=== PATIENT | male | born 1945 | race Asian ===

== ENCOUNTER 2019-05-12 11:56 | Inpatient (IN) | payer OTHER, MEDICAID ==
[~2019-05-12] VITALS: Ht 165.1 cm; Wt 64.9 kg
[2019-05-12 11:59] VITALS: Ht 165.1 cm; Wt 64.9 kg
--- NOTE | 2019-05-12 12:11 | NUR ---
ED PHYSICIAN AT BEDSIDE FOR PATIENT EVALUATION. MEDICAL SCREENING EXAMINATION COMPLETED BY ED PHYSICIAN DR. ORTEZ
[2019-05-12 12:37] LABS: BASOPHIL % 0.1 % (0-2); PLATELET COUNT 330 x10^3mcL (130-400)
[2019-05-12 12:43] LABS: CALCIUM 8.8 mg/dL (8.5-10.1); CARBON DIOXIDE 33.3 mmol/L (21-32); CHLORIDE SERUM 106 mmol/L (98-107); CREATININE SERUM 2.4 mg/dL (0.7-1.3); GLUCOSE SERUM 113 mg/dL (74-106); POTASSIUM SERUM 4.4 mmol/L (3.5-5.1); RED CELL DISTRIBUTION WIDTH 16.5 % (11.5-14.5); SODIUM SERUM 142 mmol/L (136-145)
[2019-05-12 12:56] LABS: ALBUMIN 2.2 g/dL (3.4-5.0); ALKALINE PHOSPHATASE 121 U/L (46-116); ALT/SGPT 61 U/L (16-63); AST/SGOT 33 U/L (15-37); T4(THYROXINE) 5.6 ug/dL (4.7-13.3); TOTAL PROTEIN, SERUM 6.1 g/dL (6.4-8.2)
--- NOTE | 2019-05-12 14:06 | NUR ---
AT BEDSIDE SPEAKING WITH FAMILY MEMBER
--- NOTE | 2019-05-12 14:29 | NUR ---
PT DIAPER CHANGED AND CLEANED. STRAIGHT CATH PERFORMED, PT TOLERATED WELL.
--- NOTE | 2019-05-12 14:59 | NUR ---
PT NOTED THRASHIN IN BED. LIGHT TURNED OFF. PT IN DIRECT VIEW OF NURSES STATION. RESPS E/U, SKIN IS PINK, WARM AND DRY. FAMILY AT BEDSIDE.
[2019-05-12 15:31] LABS: AMPHETAMINE QUAL UR NONE DETECTED (See below)
--- NOTE | 2019-05-12 15:32 | NUR ---
PT TRANSFERED TO CT AND BACK TO ROOM. PT COOPERATIVE AT THE MOMENT. PT MORE ALERT, PT MADE VERBAL AGREEMENT TO STAY CALM AND NON-VIOLENT. SON AND AUNT AT BEDSIDE. REMOVED 4 POINT RESTRAINTS. PT IN DIRECT VIEW OF NURSES STATION.
--- NOTE | 2019-05-12 17:20 | NUR ---
PROVIDED DR. ROJAS WITH BRIEF INFO, FOR HE WILL BE INITIATING TELE PYSCH EVALUATION.
--- NOTE | 2019-05-12 18:16 | NUR ---
RECOMMENDS ADMISSION TO IN-PATIENT PSYCHIETRY.
--- NOTE | 2019-05-12 19:15 | NUR ---
REPORT RECEIVED FROM WINSOME ENCINAS TO ASSUME CARE OF PT. PT IS ALERT AND INTRODUCED SELF. PT IS EATING QUIETLY AT BEDTIME. PT APPEARS FIDGETY. GAVE COMFORT MEASURES AND REPOSTIONED. WILL CONTINUE TO MONITOR
--- NOTE | 2019-05-12 20:37 | NUR ---
SON EXPRESSED HE WAS LEAVING AND IF PLACEMENT WAS MADE TO CALL AND NOTIFY. PT EDUCATED ABOUT SON LEAVING AND BECAME UPSET AND VERBALIZED HE WAS STILL HERE. MEDICATION WAS GIVEN PER ORDER. WILL CONTINUE TO REORIENT AND DESCALATE PT.
--- NOTE | 2019-05-12 22:07 | NUR ---
CALLED DOWN TO PHARMACY FOR MEDICATION. WILL AWAIT ARRIVAL
--- NOTE | 2019-05-12 22:12 | NUR ---
EMT CALLED TO BEDSIDE FOR PT AGITATION WITH PULLING AT LINES AND CLIMBING OUT OF BED. PT PLACED BACK IN BED REORIENTED AND DEESCALTED SITUATION. PT WAS REDIRECTABLE AT TIME ALTHOUGH APPEARS CONFUSED AND CONTINUES TO YELL OTHERS NAMES WHO ARE NOT PRESENT. WILL CONTINUE TO MONITOR
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
--- NOTE | 2019-05-12 22:46 | NUR ---
PT PLACED IN BILATERAL UPPER/LOWER SOFT RESTRAINTS. PT WAS PLACED IN APPROPRAITE CLOTHING. POSITIONED FOR COMFORT. GIVEN WATER AND ENVIORNMENTAL STIMULI WAS DECREASED. WILL CONTINUE TO MONITOR.
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
--- NOTE | 2019-05-13 02:54 | NUR ---
PT HAS BILATERAL LEGS REMOVED. ARMS WERE MOVED FOR ROM. PT HAS PEROIDS OF RESTLESSNESS AND CONFUSION WITH CONTINUED PEROIDS OF PULLING AT LINES. OFFERED FLUDIS AND TOILETRY AND REPOSITIONED FOR COMFORT. WILL CONTINUE TO MONITOR
--- NOTE | 2019-05-13 03:57 | NUR ---
EDUCATED DR DUPREE OF CONTINUED ELEVEATED HR RATE AND RESPIRATIONS. NO NEW ORDERS AT THIS TIME
--- NOTE | 2019-05-13 04:14 | NUR ---
MOUTH CLEANED OFFERED WATER AND TOILETRYS. PT REPOSTIONED FOR COMFORT. PT CONTINUES TO TALK TO SELF
--- NOTE | 2019-05-13 05:07 | NUR ---
PT CLEANED TURNED, JAIRO CARE GIVEN. GIVEN NEW SHEETS, GOWN AND WARM BLANKET. PT IS DISORIENTED AND STILL APPEARS TO BE HALUCINATING. LAB AT BEDSIDE FOR BLOOD DRAW. NO S/S OF DISTRESS.
[2019-05-13 05:23] LABS: PLATELET COUNT 360 x10^3mcL (130-400)
--- NOTE | 2019-05-13 05:23 | NUR ---
PT APPEARS RESTLESS BUT DURING CONVERSTAION WAS ALERT AND ABLE TO ANSWER QUESTIONS APPROPRIATLY. PT WAS FOLLOWING BASIC COMMANDS AND WRIST RESTRAINTS REMOVED. PT GIVEN WARM BLANKET AND EDUCATED ABOUT SAFTEY PRECAUTIONS. WILL CONTINUE TO MONITOR
[2019-05-13 05:24] LABS: BASOPHIL % 2.8 % (0-2)
[2019-05-13 05:38] LABS: ALKALINE PHOSPHATASE 116 U/L (46-116); ALT/SGPT 48 U/L (16-63); AST/SGOT 33 U/L (15-37); BILIRUBIN TOTAL 0.67 mg/dL (0.20-1.00); CALCIUM 9.1 mg/dL (8.5-10.1); CARBON DIOXIDE 28.8 mmol/L (21-32); CHLORIDE SERUM 108 mmol/L (98-107); CREATININE SERUM 2.2 mg/dL (0.7-1.3); GLUCOSE SERUM 123 mg/dL (74-106); MAGNESIUM 2.6 mg/dL (1.8-2.4); PHOSPHOROUS 2.6 mg/dL (2.5-4.9); POTASSIUM SERUM 4.5 mmol/L (3.5-5.1); SODIUM SERUM 143 mmol/L (136-145); TOTAL PROTEIN, SERUM 6.2 g/dL (6.4-8.2)
[2019-05-13 05:46] LABS: ALBUMIN 2.2 g/dL (3.4-5.0)
[2019-05-13] MEDS ORDERED: LIPITOR80 MG PO (06:31)
[2019-05-13] MEDS ORDERED: LAMOTRIGINE25 MG PO (06:31)
[2019-05-13] MEDS ORDERED: ALLOPURINOL100 MG (06:31)
[2019-05-13] MEDS ORDERED: CARVEDILOL25 M1 PO (06:31)
[2019-05-13] MEDS ORDERED: SEROQUEL25 MG PO (06:32)
[2019-05-13] MEDS ORDERED: ELIQUIS2.5 MG (06:32)
[2019-05-13] MEDS ORDERED: LASIX20 MG (06:32)
--- NOTE | 2019-05-13 06:55 | NUR ---
SPOKE WITH PTS . PT VERBALZIXED BEING VERY GREATFUL FOR THE HELP. REQUESTING TO CHECMICALLY RESTRAIN PT INSTEADY OF PHYSICALLY. EDUCATED SHE WOULD NEED TO SPEAK WITH ADMITING MD ABOUT REQUEST
--- NOTE | 2019-05-13 07:14 | NUR ---
RECEIVED REPORT FROM CHAIRMAN EMERITUS LUCHO ENCINAS
--- NOTE | 2019-05-13 07:36 | NUR ---
REPORT GIVEN TO MINDA CLAYTON RN
--- NOTE | 2019-05-13 08:34 | NUR ---
Following facilities have been contacted regarding pt. [facility]: [facility], packet on file for review, states pending D/Cs [facility]: [facility], states pending D/Cs, packet on file for review [facility]: packet on file for review for potential openings.
--- NOTE | 2019-05-13 09:00 | NUR ---
RECEIVED PATIENT RESTING IN BED. PATIENT IS A/O X1 (PERSON). PATIENT ARRIVED VIA GURNEY, NURSE AT BEDSIDE. PATIENT DENIES PAIN. TELE MONITOR #16, AFIB WITH BBB, FAMILY STATES PATIENT HAS HX OF AFIB. DR. APARICIO AWARE. NO EDEMA NOTED, PULSES PALPABLE X4. FINE CRACKLES NOTED TO THE LUNG BASES. BOWEL SOUNDS NORMOACTIVE X4. PATIENT IS INCONTINENT. PATIENT USES WALKER WHEN AMBULATING AT BASELINE. SCAB NOTED TO RIGHT FOREARM. PATIENT DENEIS ANY SUICIDAL IDEATION. CALL LIGHT WITHIN REACH, BED IN LOW POSITION. WILL CONTINUE TO MONITOR FOR CHANGES.
[2019-05-13 10:32] VITALS: BP 91/67
--- NOTE | 2019-05-13 10:38 | NUR ---
Packet faxed to Aleena at [facility] for review.
--- NOTE | 2019-05-13 10:43 | NUR ---
Called [facility]. They are not contracted with patient's insurance.
--- NOTE | 2019-05-13 11:00 | NUR ---
PATIENT REFUSED TO COLLECT SAMPLE FOR MRSA NARES. CHARGE NURSE AWARE.
--- NOTE | 2019-05-13 11:01 | NUR ---
Packet faxed to [facility] for review.
--- NOTE | 2019-05-13 11:06 | NUR ---
Called [facility]. No female beds at this time.
--- NOTE | 2019-05-13 11:09 | NUR ---
Called [facility]. They cannot safely manage patients with a Hx of Dementia.
--- NOTE | 2019-05-13 11:16 | NUR ---
Packet faxed to [facility] for review.
--- NOTE | 2019-05-13 12:15 | NUR ---
DR APARICIO REQUESTED FOR SWALLOW EVALUATION TO RULE OUT DYSPHAGIA. WILL CARRY OUT TORB.
[2019-05-13 14:10] VITALS: BP 146/85
--- NOTE | 2019-05-13 15:25 | NUR ---
PATIENT APPEARS AGITATED AND RESTLESS, PAGED DR. APARICIO AT THIS TIME.
--- NOTE | 2019-05-13 16:23 | NUR ---
PT WAS SEEN FOR DYSPHAGIA. PT HAD MILD COUGH FOR THIN LIQUID AND NECTAR THICK LIQUID. PT WAS ABLE TO SAFELTY SWALLOW PUREE DIET WITH HONEY THICK LIQUID. RECOMMENDATION PUREE DIET WITH HONEY THICK LIQUID SMALL BITES AND SIPS ONLY UPRIGHT POSITION.
--- NOTE | 2019-05-13 16:53 | NUR ---
PATIENT WAS RESTLESS AND AGITATED, MEDICATED PATIENT WITH ATIVAN .5MG IVP PER PROTOCOL (SEE EMAR). WILL CONTINUE TO MONITOR PATIENT.
[2019-05-13 18:00] VITALS: BP 145/75
--- NOTE | 2019-05-13 18:30 | NUR ---
PATIENT PULSE OX WAS 91%, ATTEMPTED TO PLACE PATIENT ON OXYGEN, PATIENT REFUSED AND BECAME IRRITATED. SUCTION PATIENT NEEDED AND ELEVATED HOB. WILL CONTINUE TO MONITOR. NO ACUTE DISTRESS NOTED. PATIENT ON ROOM AIR, DENIES PAIN. TELE MONITOR IN PLACE. NS IV INFUSING TO DELFINA AT 100ML/HR, IV SITE CDI & PATENT, NO S/S OF INFILTRATION. SITTER AT BEDSIDE FOR SAFETY. CALL LIGHT WITHIN REACH, BED IN LOW POSITION. WILL ENDORSE REPORT TO NIGHT RN.
--- NOTE | 2019-05-13 19:30 | NUR ---
ALERT AND AWAKE. ABLE TO ANSWER SIMPLE QUESTIONS AND FOLLOW SIMPLE COMMANDS. PT ON TELE 16, AFIB WITH BBB. NO SIGN OF DISTRESS NOTED. PULSES ARE PRESENT. NO EDEMA NOTED. CONGESTED LUNG SOUNDS ON BUL NOTED. PT HAS A COUGHT WITH SCANT CLEAR SPUTUM. PT ON RA, NO SIGN OF RESP DISTRESS. BOWEL SOUNDS PRESENT x4. INCONTINENT. SMALL, DRIED OVER SCAB NOTED ON RFA. INTACT AND CLEAN. JOSE MANUEL. IV ON DELFINA INTACT AND PATENT. NO SIGN OF IRITATION OR INFILTRATION. PT IS ON A 5150 HOLD. BED IS AT LOWEST SETTING. CALL LIGHT WITHIN REACH. SITTER AT BEDSIDE. BED ALARM ON FOR SAFETY. WILL CONTINUE TO MONITOR.
[2019-05-13 21:21] VITALS: BP 145/85
--- NOTE | 2019-05-13 23:13 | NUR ---
PT IS VERY RESTLESS. IV ATIVAN GIVEN PER EMAR. WILL CONTINUE TO MONITOR.
--- NOTE | 2019-05-14 01:38 | NUR ---
PT IS RESTING IN BED WITH BOTH EYES CLOSED. BREATHING EVEN AND UNLABORED. NO SIGN DISTRESS NOTED. BED AT LOWEST SETTING. CALL LIGHT WITHIN REACH. SITTER AT BEDSIDE. WILL CONTINUE TO MONITOR.
[2019-05-14 05:52] VITALS: BP 117/82
--- NOTE | 2019-05-14 06:02 | NUR ---
Pt, at this time still awaitng for medical clearance.
[2019-05-14 06:22] LABS: PLATELET COUNT 379 x10^3mcL (130-400)
--- NOTE | 2019-05-14 06:44 | NUR ---
PT IS RESTING IN BED WITH BOTH EYES CLOSED. PT SILL AGITATED AT TIMES. MOVING CONSTANLY IN BED AND FIDGETING. SITTER AT BEDSIDE. BED IS AT LOWEST SETTING. CALL LIGHT WITHIN REACH. WILL ENDORSE TO AM [place].
[2019-05-14 06:45] LABS: CALCIUM 8.9 mg/dL (8.5-10.1); CARBON DIOXIDE 22.3 mmol/L (21-32); CHLORIDE SERUM 116 mmol/L (98-107); CREATININE SERUM 2.4 mg/dL (0.7-1.3); GLUCOSE SERUM 154 mg/dL (74-106); SODIUM SERUM 150 mmol/L (136-145)
[2019-05-14 06:48] LABS: BASOPHIL % 0 % (0-2); RED CELL DISTRIBUTION WIDTH 16.6 % (11.5-14.5)
--- NOTE | 2019-05-14 07:30 | NUR ---
RECEIVED PATIENT IN BED WITH 1-1 SITTER AT BEDSIDE. PATIENT APPEARS TO BE RESTING WELL. IVF INFUSING WELL TO DELFINA. SITE PATENT. TELE 16 A-FIB WITH BBB. PATIENT AROUSES TO NAME, OPENS EYES AND THEN DROPS BACK OFF TO SLEEP. RESP EVEN AND UNLABORED, LUNGS NOTED TO BE CONGESTED. O2 ON AT 2L VIA N/C. UNABLE TO TAKE BREAKFAST TRAY OR AM MEDS D/T LETHARGY AT THIS TIME. WILL CONTINUE TO MONTIOR.
[2019-05-14 07:43] LABS: POTASSIUM SERUM 6.2 mmol/L (3.5-5.1)
[2019-05-14 07:54] VITALS: BP 135/57
--- NOTE | 2019-05-14 11:38 | NUR ---
DR APARICIO NOTIFIED THAT PATIENT IS UNBLE TO TAKE ANY PO MEDS D/T BEING LETHARGIC, AND NOT SWALLOWING WHEN ATTEMPTS WERE MADE TO GIVE SMALL AMOUNT OF APPLE SAUCE. NEW ORDERED OBTAINED TO INSERT NGT AND USE TO GIVE MEDS. WILL NOTIFY PATIENT'S OF NEW ORDER.
--- NOTE | 2019-05-14 11:44 | NUR ---
PATIENT'S NOTIFIED OF NEW ORDER TO PLACE NGT FOR MEDS, AND PER THAT IS OK WITH HER.
[2019-05-14 13:55] VITALS: BP 93/47
--- NOTE | 2019-05-14 14:28 | NUR ---
NGT PLACED IN LEFT NARE ORDERED. KUB ORDERED FOR PLACEMENT. 1-1 SITTER AT BEDSIDE.
--- NOTE | 2019-05-14 15:50 | NUR ---
PATIENT UNCOOPERATIVE WITH CARE, PULLING AT LINES. KUB DONE AND NGT PLACEMENT CONFIRMED. DR APARICIO NOTIFIED AND NEW ORDER FOR WRIST RESTRAINTS RECEIVED. WILL CONTINUE TO [facility].
--- NOTE | 2019-05-14 17:39 | NUR ---
PATIENT REMAINS IN BED WITH BILAT SOFT WRIST RESTRAINTS IN PLACE. 1-1 SITTER ALSO AT BEDSIDE. KAYEXALATE GIVEN ORDERED VIA NGT FOR K+ LEVEL OF 6.[address] ORDER. PATIENT REMAINS CONFUSED, MOVES AROUND IN BED FREQUENTLY. WILL CONTINUE TO MONITOR. PATIENT'S WAS NOTIFIED EARLIER ABOUT RESTRAINT ORDER FOR PATIENT AND SHE WAS IN AGREEMENT.
[2019-05-14 18:13] VITALS: BP 135/79
--- NOTE | 2019-05-14 18:52 | NUR ---
I HAVE REVIEWED THE DATA COLLECTION BY DIESEL SCOOP OPERATOR (NAME): ENTERED ON (DATE/TIME): I CONCUR WITH THE DATA AND ANY EXCEPTIONS OR COMMENTS ARE LISTED BELOW: PATIENT'S PLAN OF CARE WAS DISCUSSED AND REVIEWED WITH DIESEL SCOOP OPERATOR:VIN TOUSSAINT
--- NOTE | 2019-05-14 18:53 | NUR ---
FAMILY MEMBERS AT BEDSIDE. PATIENT REMAINS WITH GAVIN SOFT WRIST RESTRAINTS IN PLACE. 1-1 SITTER AT BEDSIDE. PATIENT MOVES ABOUT FREQUENTLY IN BED. REMAINS CONGESTED AND WITH O2 ON AT 2L VIA N/C. NGT CLAMPPED AT THIS TIME.
--- NOTE | 2019-05-14 19:10 | NUR ---
RECEIVED PT FROM PREVIOUS SHIFT NURSE. PT AOX1. UNABLE TO FOLLOW COMMANDS. OCCACIONS GRUNTS. TELE #17, AFIB WITH BBB, HR 120. NO SOB/DIFFICULTY BREATHING NOTED, ON 2L NC. NG TUBE TO L. NARE. IV TO DELFINA, INTACT AND PATENT. B/L SOFT WRIST RESTRAINTS IN PLACE, NO REDNESS/SWELLING NOTED TO WRISTS. FAMILY AT BEDSIDE. BED IN LOWEST POSITION. CALL LIGHT WITHIN REACH. WILL CONTINUE TO MONITOR.
[2019-05-14 19:19] VITALS: BP 114/54
--- NOTE | 2019-05-14 23:35 | NUR ---
Pt still not medically cleared ,per GEORGINA ENCINASextension service specialist in charge floor nurse.
--- NOTE | 2019-05-15 04:42 | NUR ---
PT RESTING IN BED. RR EVEN AND UNLABORED. IN NO ACUTE DISTRESS. CALL LIGHT WITHIN REACH. BED IN LOWEST POSITION. WILL CONTINUE TO MONITOR.
[2019-05-15 05:41] VITALS: BP 148/69
[2019-05-15 06:56] LABS: BASOPHIL % 0.1 % (0-2); PLATELET COUNT 322 x10^3mcL (130-400)
[2019-05-15 07:06] LABS: CALCIUM 8.2 mg/dL (8.5-10.1); CARBON DIOXIDE 27.4 mmol/L (21-32); CHLORIDE SERUM 117 mmol/L (98-107); CREATININE SERUM 2.8 mg/dL (0.7-1.3); GLUCOSE SERUM 155 mg/dL (74-106); POTASSIUM SERUM 5.3 mmol/L (3.5-5.1); SODIUM SERUM 153 mmol/L (136-145)
--- NOTE | 2019-05-15 07:10 | NUR ---
RECIEVED PT FROM NIGHT NURSE. PT IS LAYING DOWN IN BED WITH HOB UP. SOFT RESTRAINTS APPLIED TO PT WRISTS. CAP REFILL < 3 SECONDS, 2 FINGER SPACING IN BETWEEN PT SKIN AND RESTRAINTS. PT LOOKS TO BE IN NO ACUTE DISTRESS AT THIS TIME. RESPRIATIONS EVEN AND UNLABORED ON 2L NC. IV SITE PATENT WITH NO SIGNS OF ERYTHEMA OR SWELLING WITH IV FLUIDS INFUSING. TELE MONITOR PRESENT. BED IN LOWEST POSITION, CALL LIGHT WITHIN REACH. SITTER AT BEDSIDE. WILL CONITNUE TO [facility].
[2019-05-15 07:40] LABS: RED CELL DISTRIBUTION WIDTH 16.6 % (11.5-14.5)
[2019-05-15 08:32] VITALS: BP 130/91
--- NOTE | 2019-05-15 09:00 | NUR ---
PT IS LAYING DOWN IN BED RESTING WITH HOB UP AND EYES CLOSED. RELEASED ONE RESTRAINT AT A TIME AND CHECKED CAP REFIL <3 SECONDS AND ASSESS SKIN UNDER SOFT RESTRAINT, NO SIGNS OF SKIN BREAKDOWN. ROM EXERCISES PERFORMED. RESTRAINTS REAPPLIED AND PT REPOSITIONED. SITTER AND FAMILY MEMBER AT BEDSIDE. WILL CONITNUE TO MONITOR.
--- NOTE | 2019-05-15 11:00 | NUR ---
PT IS LAYING DOWN IN BED WITH HOB UP, PT CONTINUES TO TRY TO PULL AT NG TUBE AND IV LINE, PT EDUCATED ON THE NEED FOR RESTRAINTS. RELEASED EACH RESTRAINT ONE AT A TIME. CAP REFILL <3 SECONDS, NO SIGNS OF SKIN BREAKDOWN, ROM EXERCISES PERFORMED. RESTRAINTS REAPPLIED AND PT REPOSITIONED. CALL LIGHT WITHIN REACH. SITTER AT BEDSIDE. WILL CONTINUE TO MONITOR.
--- NOTE | 2019-05-15 13:15 | NUR ---
RESTRAINTS REMOVED ONE AT A TIME AND PT SKIN ASSESSED. NO SIGNS OF SKIN BREAKDOWN. CAP REFILL <3 SECONDS. ROM OF UPPER EXTREMITIES PERFORMED. PT REPOSITIONED AND RESTRAINTS REAPPLIED. SITTER AT BEDSIDE. WILL CONTINUE TO MONITOR.
--- NOTE | 2019-05-15 15:51 | NUR ---
PT IS LAYING DOWN IN BED WITH HOB UP. PT CONTINUES TO TRY TO PULL AT NG TUBE AND IV LINE. INFORMED PT OF THE NEED FOR THE IV LINE AND NG TUBE AND REORIENTED PT TO ROOM AND SURROUNDINGS. RELEASED PT FROM RESTRAINTS ONE SIDE AT A TIME. CAP REFILL <3 SECONDS, ROM EXERCISES COMPLETED, RESTRAINTS RETURNED. SITTER AT BEDSIDE, CALL LIGHT WITHIN REACH. BED IN LOWEST POSITION, WILL CONITNUE TO MONITOR.
--- NOTE | 2019-05-15 17:27 | NUR ---
PT IS LAYING DOWN IN BED WITH HOB UP. FAMILY MEMBER AT BEDSIDE HOLDING PT'S HAND, PT LOOKS TO BE IN NO ACUTE DISTRESS AT THIS TIME AND DENIES ANY PAIN. RELEASED RESTRAINT ONE AT A TIME TO ASSESS FOR SKIN BREAKDOWN AND PROVIDE ROM EXERCISES OF THE UPPER EXTREMITIES. NO SIGNS OF SKIN BREAKDOWN AND CAP REFILL <3 SECONDS. RESTRAINTS REAPPLIED, 2 FINGERS SPACE BETWEEN SOFT WRIST RESTRAINT. BED IN LOWEST POSITION, CALL LIGHT WITHIN REACH. SITTER AT BEDSIDE. WILL CONITNUE TO MONITOR.
--- NOTE | 2019-05-15 19:00 | NUR ---
EYES CLOSED, AT TIMES OPENED EYES SPONTANEOUSLY, BUT CLOSES THEM RIGHT AWAY. HOB ELEVATED 30 DEG. SPEECH IS INCOMPREHENSIBLE. NOT ANSWERING QUESTIONS. AGITATED AT TIMES. COUGHS WHEN LAID DOWN TO BE TURNED AND REPOSITIONED. NEEDED SUCTIONING, SUCTIONED SCANT AMOUNT OF WHITE SPUTUM. BREATHING UNLABORED ON 2LPM OF O2 VIA NC. NG TUBE TO LEFT NARE, CLAMPED. IVF OF D5W INFUSING TO RIGHT UPPER ARM AT 60ML/HR. PT SOFT BILATERAL WRIST RESTRAINTS. ABLE TO INSERT TWO FINGERS BETWEEN RESTRAINT AND ARM. ATTEMPTED TO RELEASE RESTRAINTS, PT IMMEDIATELY TRIES TO REMOVE NG TUBE AND IV LINE. DANGER TO SELF. PLACED BACK ON RESTRAINTS. NOTED BLANCHABLE REDNESS TO BUTTOCKS AND SACRO/COCCYGEAL AREA. TURNED AND REPOSITIONED TO LEFT SIDE. HOB KEPT ELEVATED 30 DEG. SITTER IN ROOM.
--- NOTE | 2019-05-15 19:02 | NUR ---
PT IS LAYING DOWN IN BED WITH HOB UP. PT LOOKS TO BE IN NO ACUTE DISTRESS AT THIS TIME AND DENIES ANY PAIN. SOFT WRIST RESTRAINTS APPLIED, CAP REFILL <3 SECONDS, NO SIGNS OF SKIN BREAKDOWN. FAMILY MEMBER AT BEDSIDE. IV SITE PATENT WITH NO SIGNS OF ERYTHEMA OR SWELLING WITH IV FLUIDS INFUSING. NG TUBE PRESENT. BED IN LOWEST POSITION, CALL LIGHT WITHIN REACH. WILL ENDORSE TO ONCOMING SHIFT.
--- NOTE | 2019-05-15 22:29 | NUR ---
EYES CLOSED, NO AGITATION NOTED AT THIS TIME. BREATHING EVEN AND UNLABORED ON 2LPM OF O2 VIA NC. HOB KEPT ELEVATED 30 DEG. RR 18/MIN. O2 SAT 99%. SITTER IN ROOM.
--- NOTE | 2019-05-16 01:19 | NUR ---
EYES CLOSED, BREATHING EVEN AND UNLABORED ON 2LPM OF O2 VIA NC. HOB KEPT ELEVATED 30 DEG. SITTER IN ROOM.
[2019-05-16 05:20] VITALS: BP 124/76
--- NOTE | 2019-05-16 06:30 | NUR ---
COUGHING NOTED DURING SHIFT, NEEDING ORAL SUCTIONING. SCANT AMOUNT OF WHITE SPUTUM SUCTIONED FROM MOUTH. HOB KEPT ELEVATED 30 DEG. BED BATH ADMINISTERED. NO ERYTHEMA NOTED TO BUTTOCKS. PAD WET WITH URINE. HYGIENE NEEDS ATTENDED TO. HYDRAGUARD APPLIED TO BUTTOCKS, INNER THIGH, AND SACRUM. LINEN AND GOWN CHANGED. STILL ON SOFT BILATERAL WRIST RESTRAINTS. PT STILL ATTEMPTING TO PULL ON NG TUBE AND IV LINE. DANGER TO SELF. NO REDNESS OR OPEN SKIN BREAKDOWN NOTED TO RESTRAINT SITES TO FOREARMS. TURNED AND REPOSITIONED. O2 SAT 100%. IV SITE TO RIGHT UPPER ARM FREE FROM ERYTHEMA OR SWELLING. IVF INFUSING WELL.
[2019-05-16 06:36] LABS: CALCIUM 9.1 mg/dL (8.5-10.1); CHLORIDE SERUM 114 mmol/L (98-107); CREATININE SERUM 2.8 mg/dL (0.7-1.3); GLUCOSE SERUM 134 mg/dL (74-106); MAGNESIUM 2.8 mg/dL (1.8-2.4); POTASSIUM SERUM 4.9 mmol/L (3.5-5.1); SODIUM SERUM 150 mmol/L (136-145)
[2019-05-16 06:42] LABS: BASOPHIL % 0.1 % (0-2); PLATELET COUNT 312 x10^3mcL (130-400)
--- NOTE | 2019-05-16 07:05 | NUR ---
RECIEVED PT FROM NIGHT NURSE. PT IS LAYING DOWN IN BED WITH HOB UP. PT IS RESTING WITH EYES CLOSED. PT LOOKS TO BE IN NO ACUTE DISTRESS AT THIS TIME. TELE MONITOR PRESENT, IV SITE PATENT WITH NO SIGNS OF ERYTHEMA OR SWELLING WITH IV FLUIDS INFUSING. SOFT RESTRAINTS IN PLACE, CAP REFILL <3 SECONDS, 2 FINGER SPACE IN BETWEEN RESTRAINT AND SKIN, NO SIGNGS OF SKIN BREAKDOWN. BED IN LOWEST POSITION, CALL LIGHT WITHIN REACH. SITTER AT BEDSIDE. WILL CONTINUE TO MONITOR.
--- NOTE | 2019-05-16 07:08 | NUR ---
EYES CLOSED, BREATHING EVEN AND UNLABORED ON 2LPM OF O2 VIA NC. NO COUGHING NOTED AT THIS TIME. HOB ELEVATED 35 DEG. IVF INFUSING WELL. SITTER IN ROOM, ENDORSED TO NURSE JOCELYN
[2019-05-16 07:10] LABS: RED CELL DISTRIBUTION WIDTH 16.7 % (11.5-14.5)
[2019-05-16 07:30] VITALS: BP 103/52
--- NOTE | 2019-05-16 11:15 | NUR ---
PT IS LAYING DOWN IN BED. REMOVED RESTRAINT ONE AT A TIME. NO SIGNS OF SKIN BREAKDOWN AND CAP REFILL <3 SECONDS. ROM EXERCISES PERFORMED AND PT REPOSITIONED. BED IN LOWEST POSITION. PT ON AIR MATTRESS. SITTER AT BEDSIDE. WILL CONTINUE TO MONITOR.
[2019-05-16 12:25] VITALS: BP 118/61
--- NOTE | 2019-05-16 13:34 | NUR ---
PT IS LAYING DOWN IN BED. RESTRAINTS REMOVED AND ROM EXERCISES PERFORMED. NO SIGNS OF SKIN BREAKDOWN AND CAP REFILL <3 SECONDS. RESTRAINTS REAPPLIED. FAMILY MEMBER AT BEDSIDE. PT SEEMS TO BE MORE AWAKE AT THIS TIME AND WILL ATTEMPT TO FEED PT. RESPOSITIONED PT. WILL CONTINUE TO MONITOR.
--- NOTE | 2019-05-16 15:20 | NUR ---
REMOVED RESTRAINTS ONE AT A TIME. PREFORMED ROM EXERCISES AND REPOSITIONED PT. NO SIGNS OF SKIN BREAKDOWN AND CAP REFILL <3 SECONDS. REAPPLIED RESTRAINTS. PT PULLING AWAY WHEN ATTEMPTING TO REAPPLY RESTRAINTS, REPORIENTED PT TO SURROUNDINGS AND RESTRAINTS. PT RESTLESS IN BED DURING RESPOSITIONING BUT IS NOW RESTING WITH EYES CLOSED. PT LOOKS TO BE IN NO ACUTE DISTRESS AT THIS TIME. BED IN LOWEST POSITION, SITTER AT BEDSIDE. WILL CONTINUE TO MONITOR.
--- NOTE | 2019-05-16 18:42 | NUR ---
PT IS LAYING DOWN IN BED WITH HOB UP. PT LOOKS TO BE IN NO ACUTE DISTRESS AT THIS TIME AND DENIES ANY PAIN. NG TUBE PRESENT, RESPIRATIONS EVEN AND UNLABORED ON 3L NC. IV SITE PATENT WITH NO SIGNS OF ERYTHEMA OR SWELLING WITH IV FLUIDS INFUSING. SOFT RESTRAINTS APPLIED TO WRISTS, CAP REFILL <3 SECONDS, NO SIGNS OF SKIN BREAKDOWN, 2 FINGER SPACE BETWEEN RESTRAINTS AND SKIN. BED IN LOWEST POSITION, CALL LIGHT WITHIN REACH. SITTER AT BEDSIDE. WILL ENDORSE TO ONCOMING SHIFT.
--- NOTE | 2019-05-16 19:36 | NUR ---
CONFUSED, AGITATED AT TIMES. OPENED EYES AT TIMES, BUT CLOSES EYES IMMEDIATELY. HOB ELEVATED 35 DEG. NG TUBE TO LEFT NARE, CLAMPED. ATTEMPTS TO PULL ON NG TUBE WHEN SOFT BILATERAL WRIST RESTRAINTS RELEASED. DANGER TO SELF. PRODUCTIVE COUGH NOTED, NEEDS ORAL SUCTIONING, SCANT WHITE MUCOUS SUCTIONED. WEARING DIAPERS. PT'S HAD INSISTED ON HAVING PT WEAR DIAPERS PER DAY SHIFT. TALKED TO PT'S WHO CAME IN. EXPLAINED HIGHER RISKS OF SKIN BREAKDOWN WITH USE OF DIAPERS VERSUS INCONTINENT PADS. PT'S AGREED TO USE PADS WHILE PT IN HOSPITAL. IVF OF D5 W INFUSING AT 80ML/HR. ON AIR MATTRESS.
--- NOTE | 2019-05-16 20:03 | NUR ---
DIAPER REMOVED, PLACED ON INCONTINENT PADS. HYGIENE NEEDS ATTENDED TO PT HAD VOIDED. HYDRAGUARD APPLIED. PT COUGHED, SUCTIONED MOUTH. SCANT AMOUNT OF WHITE SPUTUM. HOB KEPT ELEVATED 30 DEG. LEFT FOR HOME.
--- NOTE | 2019-05-16 22:52 | NUR ---
EYES CLOSED, NO COUGHING NOTED AT THIS TIME. BREATHING EVEN AND UNLABORED, RR 17/MIN, HR 106/MIN ON TELE, AFIB WITH BBB. RELEASED SOFT RESTRAINTS, ROM DONE. PT ATTEMPTS TO PULL ON NG TUBE AND IV LINE. DANGER TO SELF. PLACED BACK ON RESTRAINTS. HOB KEPT ELEVATED 35 DEG. SITTER IN ROOM.
--- NOTE | 2019-05-16 22:54 | NUR ---
LATE ENTRY: 2020H - NG TUBE PLACEMENT VERIFIED. ADMINISTERED DUE MEDICATIONS.
--- NOTE | 2019-05-17 00:24 | NUR ---
AGITATED, ATIVAN 0.5MG ADMINISTERED SLOW IVP. MOISTURIZING GEL APPLIED TO LIPS WHICH ARE DRY
--- NOTE | 2019-05-17 00:30 | NUR ---
PT CALMER, BREATHING EVEN AND UNLABORED ON 3LPM OF O2 VIA NC. RR 18/MIN. HR 115/MIN. HOB KEPT ELEVATED 35 DEG.
[2019-05-17 04:27] VITALS: BP 141/84
--- NOTE | 2019-05-17 06:09 | NUR ---
BED BATH ADMINISTERED, ORAL CARE DONE. PAD WET WITH URINE, HYGIENE NEEDS ATTENDED TO. HYDRAGUARD APPLIED TO BUTTOCKS AND INNER THIGH. NO ERYTHEMA NOTED TO BUTTOCKS. RELEASED SOFT WRIST RESTRAINTS. ROM OF EXTREMITIES DONE. PT STILL ATTEMPTS TO PULL ON NG TUBE AND IV LINE. DANGER TO SELF. PLACED BACK ON RESTRAINTS. HOB KEPT ELEVATED 30 DEG. ORAL SUCTIONING DONE, SCANT AMOUNT OF WHITE PHLEGM SUCTIONED. HOB KEPT ELEVATED 30 DEG. REMAINED AFIB ON TELE W/ BBB, HR 118/MIN AT THIS TIME.
[2019-05-17 07:03] LABS: CALCIUM 8.8 mg/dL (8.5-10.1); CARBON DIOXIDE 26.7 mmol/L (21-32); CHLORIDE SERUM 111 mmol/L (98-107); CREATININE SERUM 2.8 mg/dL (0.7-1.3); GLUCOSE SERUM 79 mg/dL (74-106); MAGNESIUM 2.6 mg/dL (1.8-2.4); POTASSIUM SERUM 4.6 mmol/L (3.5-5.1); SODIUM SERUM 147 mmol/L (136-145)
--- NOTE | 2019-05-17 07:10 | NUR ---
EYES CLOSED, BREATHING UNLABORED, NO COUGHING NOTED AT THIS TIME. ON 3LPM OF O2 VIA NC. HOB ELEVATED 35 DEG. NG TUBE CLAMPED. IVF INFUSING WELL. SITTER IN ROOM. ENDORSED TO NURSE WHEAT
--- NOTE | 2019-05-17 07:11 | NUR ---
RECEIVED REPORT FROM KAILEE ENCINAS. PT SLEEPING COMFORTABLY ON AIR MATTRESS WITH SITTER AT BEDSIDE. IV TO RAC IS PATENT AND INFUSING D5 @ 80 ML/HR. NO REDNESS OR PAIN. TELE # [address] NO INDICATION OF CHEST PAIN. PT ON O2 3L NC. NO C/O SOB AND NO DISTRESS NOTED. NG TUBE IN PLACE. ALL QUESTIONS AND CONCERNS ADDRESSED.
[2019-05-17 07:14] LABS: PLATELET COUNT 367 x10^3mcL (130-400)
[2019-05-17 07:21] LABS: BASOPHIL % 0 % (0-2); RED CELL DISTRIBUTION WIDTH 16.6 % (11.5-14.5)
[2019-05-17 08:49] VITALS: BP 126/70
--- NOTE | 2019-05-17 12:14 | NUR ---
SPOKE WITH DR ELLIOTT TO NOTIFY THAT PATIENT HAS PULLED OUT HIS NG TUBE REQUIRED FOR PO MEDS. ALSO NOTIFIED THAT BROWN FLUID WAS BACKFLOWING INTO NG TUBE PRIOR TO REMOVAL. DR ELLIOTT ORDERED REINSERTION OF NG TUBE TO LOW INTERMITTENT SUCTION AND THEN CLAMP AT 21:00 FOR MEDS. KEEP CLAMPED THROUGHOUT THE NIGHT.
--- NOTE | 2019-05-17 12:22 | NUR ---
[facility] aware of patient. Spoke with casework manager, Sienna, on Tuesday 05/15, she stated patient was NOT medically cleared for inpatient psych placement. In reading the current documentation, pt still in need of medical clearance. Please notify Call Center when patient is medically cleared, has a current [phone] and is stable for inpatient psych placement. Thank you.
[2019-05-17 12:43] VITALS: BP 126/76
--- NOTE | 2019-05-17 15:22 | NUR ---
NG TUBE INSERTED TO RT NARE. AWAITING PLACEMENT CONFIRMATION.
--- NOTE | 2019-05-17 15:51 | NUR ---
IN TO SEE PATIENT AND CONTINUE IV FLUIDS. PT RESTING COMFORTABLY IN BED WITH SITTER AT BEDSIDE. NO NEEDS IDENTIFIED.
--- NOTE | 2019-05-17 19:35 | NUR ---
PT RECIEVED FROM THE DAY SHIFT RN. PT HAS GARBLED SPEECH AND UNABLE TO ASSESS ORIENTATION AT THIS TIME. SITTER IS AT THE BEDSIDE AND PT IS ON SOFT RESTRAINTS AT THIS TIME. PT SKIN IS WNL, CIRCULATION MAINTAINED, PT IS ON NG INTERMITTENT SUCTIONING AT THIS TIME. CRACKLES NOTED BILATERAL UPPER LOBES, DIMINSIHED BASES, 3L OF O2, PT IS INCONTINENT AT TIMES. BED FAST, BED ALARM IN PLACE, SAFETY NAD COMFORT MEASURS MAINTAINED, BED IN LOWEST POSITION, CALL LIGHT WTIHIN REACH.
--- NOTE | 2019-05-17 19:40 | NUR ---
REPORT GIVEN TO KRISTI ENCINAS. PATIENT RESTING IN BED WITH SITTER AT BEDSIDE. BILST SOFT WRIST RESTRAINTS IN PLACE. IV IS PATENT AND INFUSING D5 @ 20 ML/HR. NO REDNESS OR PAIN. NG TO RT NARE PLACED ON LOW INT SUCTION. PT REMAINS ON O2 3L NC. NO RESPIRATORY DISTRESS NOTED. ALL QUESITONS AND CONCERNS ADDRESSED. ALL CARES ENDORSED.
[2019-05-17 20:20] VITALS: BP 120/55
--- NOTE | 2019-05-17 20:30 | NUR ---
RESIDUAL CHECK 15CC, PLACED BACK THROUGH NG TUBE. MEDICATIONS WILL BE GIVEN CRUSHED VIA NG TUBE.
--- NOTE | 2019-05-17 21:28 | NUR ---
PT NG TUBE CLAMPED AFTER 2100 MEDS GIVEN, NO INDICATION OF PAIN AT THIS TIME. IS AT THE BEDSIDE. SPOUSE IS TEARFUL AND ATTEMPTED TO REASSURE SPOUSE. NG TUBE IN PLACE. BILATERAL SOFT WRIST RESTRAINTS IN PLACE, CIRCULATION INTACT. SAFETY AND COMFORT MEASURES MAINTAINED, BED IN LOWEST POSITION, CALL LIGHT WITHIN REACH.
[2019-05-17 21:39] VITALS: BP 120/55
--- NOTE | 2019-05-17 22:40 | NUR ---
BILATERAL SOFT WRIST RESTRAINTS IN PLACE. CIRCULATION INTACT. PT IS RESTING IN BED WITH EYES CLOSED AT THIS TIME. IVF INFUSING AND INTAC . NG TUBE TO RT NARE IS IN PLACE AND CLAMPED OFF AT THIS TIME. SITTER AT THE BEDSIDE. SAFETY AND COMFORT MEASURES MAINTAINED, BED IN LOWEST POSITION, CALL LIGHT WITHIN REACH. WILL CONTINUE TO MONITOR.
--- NOTE | 2019-05-18 00:16 | NUR ---
PT IS RESTING IN BED WITH EYES CLOSED. BILATERAL SOFT WRIST RESTRAINTS IN PLACE, CIRCULATION MAINTAINED, IV INFUSING AND INTACT AT THIS TIME. NG TUBE IS CLAMPED. SAFETY AND COMFORT MEASURES MAINTAINED, BED IN LOWEST POSITION, CALL LIGHT WITHIN REACH, SITTER AT THE BEDSIDE.
--- NOTE | 2019-05-18 01:47 | NUR ---
PT RECIEVING BREATHING TX AT THIS TIME. NO S/S OF PAIN NOTED. SAFETY AND COMFORT MEASURES MAINTAINED, BED IN LOWEST POSITION, CALL LIGHT WITHIN REACH. BILATERAL SOFT WRIST RESTRAINTS NOTED. CIRCULATION MAINTAINED, SITTER AT THE BEDSIDE. WILL CONTINUE TO MONITOR AT THIS TIME.
--- NOTE | 2019-05-18 02:48 | NUR ---
PT IS AWAKE AND MOANING AND GROANING AT THIS TIME. SPEECH IS GARBLED, NOT COHERENT. SITTER AT THE BEDSIDE, SAFETY AND COMFORT MEASURES MAINTAINED, BED IN LOWEST POSITION, CALL LIGHT WITHIN REACH. PT APPEARS TO BE AGITATED AT THIS TIME. PT IS INCONTINENT AT TIMES. BILATERAL SOFT WRIST RESTRAINTS IN PLACE. CIRCULATION INTACT.
--- NOTE | 2019-05-18 03:06 | NUR ---
PT IS RESTLESS AND AGITATED AT THIS TIME. PRN IVP ATIVAN GIVEN. SITTER AT THE BEDSIDE. BILATERAL SOFT WRIST RESTRAINTS IN PLACE.
--- NOTE | 2019-05-18 05:16 | NUR ---
PT HAS RESTED IN SHORT INTERVALS THROUGHOUT THE SHIFT. PT HAS BEEN AGITATED AND MOANING AND GROANING THROUGHOUT THE SHIFT. PT HAS BEEN ATTEMPTING TO PULL OUT NG TUBE AND IV LINES. BILATERAL SOFT WRIST RESTRAINTS IN PLACE. CIRCULATION INTACT. SKIN INTACT. NG TUBE SUCTIONED OUT BROWN LIQUID IN THE RIGHT NARE. UNABLE TO ASSESS ORIENTATION. SPEECH IS GARBLED AND NON COHERENT. PT IS INCONTINENT OF URINE AT THIS TIME. SITTER AT THE BEDSIDE. IV INFUSING AND INTACT, PT LUNGS ARE CONGESTED AND RT PROTOCOL IN PLACE, AIR MATTRESS IN PLACE. SAFETY AND COMFORT MEASURES MAINTAINED, BED IN LOWEST POSITION, CALL LIGHT WITHIN REACH, WILL ENDORSE CONTINUITY OF CARE TO THE ONCOMING RN.
[2019-05-18 05:59] VITALS: BP 149/83
[2019-05-18 06:37] LABS: BASOPHIL % 0.1 % (0-2); PLATELET COUNT 383 x10^3mcL (130-400)
[2019-05-18 06:40] LABS: ALKALINE PHOSPHATASE 225 U/L (46-116); ALT/SGPT 118 U/L (16-63); AST/SGOT 36 U/L (15-37); BILIRUBIN TOTAL 0.6 mg/dL (0.20-1.00); CALCIUM 8.8 mg/dL (8.5-10.1); CARBON DIOXIDE 33.5 mmol/L (21-32); CHLORIDE SERUM 107 mmol/L (98-107); CREATININE SERUM 2.5 mg/dL (0.7-1.3); GLUCOSE SERUM 99 mg/dL (74-106); MAGNESIUM 2.3 mg/dL (1.8-2.4); PHOSPHOROUS 2.7 mg/dL (2.5-4.9); POTASSIUM SERUM 4.6 mmol/L (3.5-5.1); SODIUM SERUM 144 mmol/L (136-145)
[2019-05-18 06:43] LABS: TOTAL PROTEIN, SERUM 5.8 g/dL (6.4-8.2)
[2019-05-18 06:53] LABS: RED CELL DISTRIBUTION WIDTH 15.8 % (11.5-14.5)
--- NOTE | 2019-05-18 07:00 | NUR ---
RECEIVED BEDSIDE REPORT FROM SEWING MACHINE REPAIRER HELPER NURSE KRISTI. PATIENT IS SLEEPING IN BED. ON 3.5L NC ON BILATERAL SOFT WRIST RESTRAINTS. IV TO DELFINA IS INFUSING D5 AT 20ML/HR. NO EDEMA OR ERYTHEMA NOTED TO IV SITE. AT BEDSIDE. PATIENT IS RESTLESS, ATTEMPTING TO PULL OUT IV AND NG TUBE. QUESTIONS AND CONCERNS ADDRESSED. SAFETY PRECAUTION IN PLACE.
--- NOTE | 2019-05-18 07:33 | NUR ---
PHYSICAL ASSESSMENT COMPLETED. PLEASE SEE PROBLEM FOCUSED CARE FOR DETAILS.
--- NOTE | 2019-05-18 08:00 | NUR ---
PATIENT IS STABLE NO APPARENT SIGNS OF PAIN. REPOITIONED PATIENT. RESPIRATIONS EVEN, NOT LABORED, PATIENT REMAINS COMFUSED, RESTLESS.UNABLE TO MAKE NEEDS KNOWN. CALL LIGHT WITHIN REACH. BED IN LOW POSITION, BEDRAILS UP, RESTRAINTS IN PLACE ON BILATERAL WRISTS. CIRCULATION INTACT. SAFETY PRECAUTIONS IN PLACE.
[2019-05-18 08:51] VITALS: BP 125/62
--- NOTE | 2019-05-18 09:02 | NUR ---
MD MADE AWARE THAT PATIENT HAS CHANGE IN HEART RATE AND RHYTHM.
--- NOTE | 2019-05-18 11:00 | NUR ---
CONTACTED MD ELLIOTT TO NOTIFY OF HIGH HEART RATE. WAITING FOR MD TO CALL BACK.
--- NOTE | 2019-05-18 11:31 | NUR ---
ADMINISTERED 1130 GLUCOSE CHECK. PATIENT TOLORATED WELL. NO APPARENT SIGNS OF PAIN. NG TUBE IN PLACE.NC IN PLACE AT 3L. RESPIRATIONS EVEN, NOT LABORED. PATIENT UNABLE TO MAKE NEEDS KNOWN. SAFETY PRECAUTIONS IN PLACE.
--- NOTE | 2019-05-18 12:19 | NUR ---
PATIENT IS STABLE NO APPARENT SIGNS OF PAIN. REPOSITIONED PATIENT. RESPIRATIONS EVEN, NOT LABORED, PATIENT REMAINS COMFUSED, RESTLESS.UNABLE TO MAKE NEEDS KNOWN. CALL LIGHT WITHIN REACH. BED IN LOW POSITION, BEDRAILS UP, RESTRAINTS IN PLACE ON BILATERAL WRISTS. CIRCULATION INTACT. SAFETY PRECAUTIONS IN PLACE.
[2019-05-18 12:40] VITALS: BP 117/66
--- NOTE | 2019-05-18 14:26 | NUR ---
ADMINISTERED MEDICATION PER EMAR. PATIENT IS CONFUSED, UNALBLE TO MAKE NEEDS KNOWN, NO APPARENT SIGNS OF PAIN. PATIENT ON SOFT BILATERAL WRIST RESTRAINTS. CIRCULATION INTACT, SKIN INTACT. SITTER AT BEDSIDE. SAFETY PRECAUTIONS IN PLACE.
--- NOTE | 2019-05-18 15:31 | NUR ---
SCREEN FOR LOW EDY SCALE AT RISK PRESSURE ULCER INJURY PREVENTION INTERVENTIONS IN PLACE. -TURN AND REPOSITION PATIENT Q 2H OFFLOAD LEFT AND RIGHT HIPS -ASSESS AND MONITOR SKIN CONDITION DURING POSITION CHANGE -OFFLOAD BILATERAL HEELS BY PLACING PILLOWS UNDER CALVES AT ALL TIMES, UNLESS OTHERWISE CONTRAINDICATED -PRESSURE REDISTRIBUTION SURFACE THERAPY -KEEP SKIN CLEAN AND DRY AT ALL TIMES.
[2019-05-18 17:00] VITALS: BP 125/67
--- NOTE | 2019-05-18 19:12 | NUR ---
PATIENT IS CONFUSED UNABLE TO MAKE NEEDS UNKNOWN. NG TUBE IN PLACE, ON D5 AT 40ML/HR. PATIENT IS ON RESTRAINTS BILATERAL WRISTS ON 3L NC. BED IN LOW PSOITION. CALL LIGHT SHAKIRA TUCKER. ENDROSED CARE TO HANDS ASSEMBLER NURSE MARIETTA.
--- NOTE | 2019-05-18 19:35 | NUR ---
PT. DOZING, EYES CLOSED, RESPONDS TO TACTILE AND PAIN STIMULI. UNABLE TO MAKE NEEDS KNOWN. NEEDS ANTICIPATED. PT. GRUNTS, GROANS, SHOUTS OUT LOUD AT TIMES. PT. W/ SOFT WRIST GAVIN RESTRAINTS IN-SITU. HOB 35 DEGREES. NG TO RT. NARE CLAMPED. BREATH SOUNDS W/ FINE AND COARSE CRACKLES TO BUE AND BLL DIMINISHED. RESP. EVEN, UNLABORED. NO SOB NOTED. PT. ON 3L/NC. ABD. SOFT AND ROUND, BOWEL SOUNDS ACTIVE. PT. INCONTINENT OF URINE. FREQUENT ROUNDS PLANNED. BED LOW LAYING.
--- NOTE | 2019-05-18 20:35 | NUR ---
SPOKE WITH FROM [facility] AND ADVISED THAT PATIENTS HEART RATE IS HIGH 127, SUGGESTED TO CHANGE ALBUTEROL TO XOPENEX AND TO ADD ATROVENT TO HELP WITH THE SECRETIONS. DR. ABARCA STATED THAT HE WOULD CHANGE MEDICATIONS.
[2019-05-18 21:08] VITALS: BP 136/80
--- NOTE | 2019-05-18 21:17 | NUR ---
PT. SUCTIONED W/ SOME DIFFICULTY BY RT. PT. RESISTING AND THROWING HIS FEET. SMALL AMOUNT OF BROWNISH SPUTUM SUCTIONED OUT. PT. CONGESTED. PT. REPOSITIONED AND MADE COMFORTABLE. HOB 35 DEGREES. NG TO RT. KEITH REMAINS IN-SITU.
--- NOTE | 2019-05-19 02:11 | NUR ---
ORAL CARE AND SUCTIONING DONE. PT. REPOSITIONED AND MADE COMFORTABLE. GAVIN SOFT WRIST RESTRAINTS REMAIN IN PLACE.
--- NOTE | 2019-05-19 02:22 | NUR ---
MEDICATION HELD DUE TO HIGH HEART RATE 121. DR. ABARCA FROM [facility] [place]WARE AND STATED THAT HE WOULD CHANGE MEDICATION TO XOPENEX AND ATROVENT.
--- NOTE | 2019-05-19 06:28 | NUR ---
PT. REMAINS ON GAVIN SOFT WRIST RESTRAINTS W/ SITTER AT BEDSIDE. IV SITE INTACT. PT. SUCTIONED BY RT. SMALL AMOUNT OF COPIOUS MUCUS OUTPUT.NO RESP. DISTRESS AT THIS TIME. REMAINS AFIB ON TELE #17. HOB 35 DEGREES. BED LOW LAYING, WILL ENDORSE PT. CARE TO INCOMING NURSE.
[2019-05-19 06:29] LABS: BASOPHIL % 0.2 % (0-2); PLATELET COUNT 367 x10^3mcL (130-400)
[2019-05-19 06:32] VITALS: BP 128/76
[2019-05-19 06:42] LABS: RED CELL DISTRIBUTION WIDTH 16.1 % (11.5-14.5)
[2019-05-19 06:52] LABS: ALKALINE PHOSPHATASE 183 U/L (46-116); ALT/SGPT 73 U/L (16-63); AST/SGOT 23 U/L (15-37); BILIRUBIN TOTAL 0.61 mg/dL (0.20-1.00); CALCIUM 9.2 mg/dL (8.5-10.1); CARBON DIOXIDE 30.8 mmol/L (21-32); CHLORIDE SERUM 107 mmol/L (98-107); CREATININE SERUM 2.5 mg/dL (0.7-1.3); GLUCOSE SERUM 130 mg/dL (74-106); MAGNESIUM 2.2 mg/dL (1.8-2.4); POTASSIUM SERUM 4.3 mmol/L (3.5-5.1); SODIUM SERUM 146 mmol/L (136-145)
[2019-05-19 06:54] LABS: ALBUMIN 1.9 g/dL (3.4-5.0); TOTAL PROTEIN, SERUM 5.6 g/dL (6.4-8.2)
--- NOTE | 2019-05-19 07:41 | NUR ---
RECEIVED PT FROM INFORMATION TECHNOLOGY OFFICER NURSE. PT IN BED SLEEPING, AROUSABLE, RESP E/U ON NC AT 3LPM. NO ACUTE DISTRESS NOTED. ON TELE 17 SHOWING A-FIB, HR: 114. IV TO RAC W/ NO SIGNS OF INFILTRATION, IVF INFUSING WELL. NGT TO R NARE IN PLACE, CLAMPED AT THIS TIME. BED IN LOWEST POSITION AND CALL LIGHT WITHIN REACH. SITTER AT BEDSIDE. WILL CONTINUE TO MONITOR.
[2019-05-19 08:38] VITALS: BP 168/82
--- NOTE | 2019-05-19 09:00 | NUR ---
PT SENT DOWN FOR PROCEDURE AT THIS TIME.
--- NOTE | 2019-05-19 10:50 | NUR ---
PT RETURNED FROM PROCEDURE. PEG TUBE NOW IN PLACE. PT SLEEPING, AROUSABLE, RESP E/U ON NC AT 2 LPM. VS FOLLOWS: T: 97.0, HR: 105, RR: 20, BP: 115/55. WILL CONTINUE TO MONITOR.
--- NOTE | 2019-05-19 11:32 | NUR ---
Initial Nutrition Assessment: Dx: ALOC, PNA, Dehydration PMHx: CVA, Dementia, Chronic Afib, HTN, CAD, DM, [place] x2 PSHx: none Labs: (05/19) Na 146H, BG 130H, BUN 30H, Cre 2.5H, Alb 1.9L, ALT 73H, ALP 183H Meds: D10% IVF, Eliquis, Lipitor, Seroquel, Zofran Diet: Pureed CCHO diet w/ HTL x 6 days PO Intake: 0%, (05/13) 30% average of 2 meals. Ht: 5'5 Wt: 143 lb, 65 kg BMI: 23.8 kg/m2 (Normal) Bed scale: 156.2 lb, w/ blankets IBW: 136 lb, 62 kg %IBW: 105 UBW: 170 lb, 2 months ago Age: 73 yrs old/Male Food Allergies: NKFA Skin: scab to RFA and RLE. Ajay: 13 Edema: none GI: abd is soft and non-tender, w/ active bowel sounds, w/ NGT to R nare in SITU. Last BM: 05/15/19, formed. Pt on bilateral soft wrist restraints for safety, on CCHO but not eating, possible PEG placement. placed on D5 IVF per RN notes. As of 05/19 11am, per RN at bedside, PEG in place, and order to start TF later today. Time is not specified. Per at bedside, pt hasn't been eating well at home for 2 weeks now, his food intake is 60-70% less of his usual intake. Pt weight 170 lb 2 months ago. During this time, family thought of providing pt w/ ONS, but pt dislikes it. Problem with: N/V/D/C: no Problems with: Chewing: no Swallowing: yes Current appetite: poor Recent wt change: 27 lb wt loss in 2 month %wt change: 16%, severe weight loss Vitamin/Supplement use: MVI daily Special diet at home: none, family gives pt anything to increase PO intake. Physical activity: none, pt w/ generalized weakness. Nutrition education: is not yet appropriate. Food-drug interactions: eliquis, lipitor, seroquel. Education is not provided at this time. Estimated Nutritional Needs Based on actual body weight 65 kg Energy: 7708-2047 kcal/d (25-30 kcal/kg for maintenance) Protein: 78-85 g/d (1.2-1.3 g/kg for Geriatric maintenance) Fluid: 7597-5319 ml/d (1 ml/kcal) or per doctor Nutrition Diagnosis 1. Inadequate nutrient intake r/t altered mental status AEB reports of pt w/ poor PO intake, worsened confusion and need for EN support. 2. Malnutrition r/t chronic illness AEB pt's 's report of 27 lb weight loss in 2 month, 16% severe weight loss and 70% less PO intake. Intervention 1. If/when medically appropriate, recommend Glucerna 1.2 at 65ml/hr (goal rate), FWF 160ml Q6H via GT. EN regimen will provide 1872 kcal, 94 gm protein and 1896ml free water daily. Which meets: 96% of upper end of estimated calorie needs and 110% of upper end of estimated protein needs. Monitor/Evaluate Goal: EN intake at least 75% of estimated needs Monitor: EN intake, Labs, GI function, skin integrity/wt maintenance F/U in 2-3 days as high risk 05/21-05/22
[2019-05-19 13:21] VITALS: BP 117/61
--- NOTE | 2019-05-19 17:20 | NUR ---
PT IN BED SLEEPING, AROUSABEL, RESP E/U ON NC AT 2 LPM. NO ACUTE DISTRESS NOTED. IV TO RAC W/ NO SIGNS OF INFILTRATION, IVF INFUSING WELL. PEG TUBE IN PLACE SECURED W/ ABD BINDER. BED IN LOWEST POSITION, SITTER AT BEDSIDE. WILL ENDORSE TO ONCOMING NURSE.
[2019-05-19 18:45] VITALS: BP 146/77
--- NOTE | 2019-05-19 19:42 | NUR ---
RECEIVED PT FROM PREVIOUS SHIFT. NONVERBAL. DROWSY. TELE #23 SHOWING AFIB. S/P PEG-TUBE PLACEMENT TODAY WITH DR. BROOKS, ABD BINDER IN PLACE, DRESSING CDI. NO S/S ACUTE DISTRESS. BREATHING E/U ON 2L OXYGEN NC. NO INDICATIONS OF PAIN. IV SITE CDI, NO ERYTHEMA OR EDEMA NOTED, IVF INFUSING WELL. CALL LIGHT WITHIN REACH. AT BEDSIDE. SAFETY MEASURES IN PLACE. TIRE MAKER AT BEDSIDE TO ASSIST WITH ADLS. WILL CONTINUE TO MONITOR.
--- NOTE | 2019-05-19 20:05 | NUR ---
PT TO MEET WITH HOSPICE AGENCY TOMORROW AT 0930 AM.
[2019-05-19 21:01] VITALS: BP 147/84
--- NOTE | 2019-05-19 21:33 | NUR ---
RECEIVED CALL FROM TELE MONITOR THAT PT HR 160 AT 2129. PT CURRENTLY RESTING IN BED, MUMBLING TO SELF, PT HR IN 130S-150S. PT GIVEN SCHEDULED MEDS AT 2115. WILL CONTINUE TO MONITOR CLOSELY.
--- NOTE | 2019-05-19 21:43 | NUR ---
[facility]ED [facility] REGARDING PT HR FLUCTUATING BETWEEN 130S-160. ADDITIONALLY, PT BECOMING INCREASINGLY AGITATED AND RESTLESS, NO PRN AVAILABLE. SPOKE TO DR. LOPEZ, RECEIEVED TELEPHONE ORDERS, WILL CARRY OUT AND INPUT.
--- NOTE | 2019-05-19 22:09 | NUR ---
PT RESTLESS, ATTEMPTING TO PULL AT PEG-TUBE AND IV. MEDICATED PER EMAR WITH ATIVAN IVP. PT TOLERATED WELL. WILL CONTINUE TO MONITOR.
--- NOTE | 2019-05-19 22:42 | NUR ---
PT CALMER AT THIS TIME, NO LONGER ATTEMPTING TO PULL AT LINES OR SHOUTING. HR NOW IN 100S-120S. NO S/S ACUTE DISTRESS. WILL CONTINUE TO MONITOR.
--- NOTE | 2019-05-19 23:10 | NUR ---
PEG-TUBE RESIDUAL CHECKED <10ML. REPLACED. JEVITY 1.2 INITIATED AT 30ML/HR PER ORDER WITH H20 FLUSH AT 30ML Q4H. ORDER STATES TO ADVANCE Q12H. WILL CONTINUE TO MONITOR.
--- NOTE | 2019-05-20 00:46 | NUR ---
PT CLEANED OF URINE INCONTINENCE AND REPOSITIONED. NO S/S ACUTE DISTRESS. BREATHING E/U ON 2L OXYGEN NC. NO SIGNS OF PAIN NOTED. WILL CONTINUE TO MONITOR.
--- NOTE | 2019-05-20 05:57 | NUR ---
PT SLEPT IN SHORT INTERVALS. NO S/S ACUTE DISTRESS. GASTRIC RESIDUAL CHECKED <10ML, REPLACED, FEEDING REMAINS AT 30ML/HR. NO INDICATIONS OF PAIN. PT OCCASIONALLY GROANS AND GRUNTS. NO CHANGES OVERNIGHT. ALL NEEDS MET AND ATTENDED TO. IV SITE CDI, IVF INFUSING WELL. CALL LIGHT WITHIN REACH. GEM STONE CUTTER AT BEDSIDE TO ASSIST WITH ADLS. WILL ENDORSE CARE TO ONCOMING SHIFT.
[2019-05-20 06:25] LABS: PLATELET COUNT 352 x10^3mcL (130-400)
[2019-05-20 06:35] LABS: BASOPHIL % 0 % (0-2); RED CELL DISTRIBUTION WIDTH 15.8 % (11.5-14.5)
[2019-05-20 06:57] LABS: ALKALINE PHOSPHATASE 170 U/L (46-116); ALT/SGPT 54 U/L (16-63); AST/SGOT 23 U/L (15-37); BILIRUBIN TOTAL 0.51 mg/dL (0.20-1.00); CARBON DIOXIDE 32.8 mmol/L (21-32); CHLORIDE SERUM 108 mmol/L (98-107); CREATININE SERUM 2.2 mg/dL (0.7-1.3); GLUCOSE SERUM 163 mg/dL (74-106); MAGNESIUM 2.2 mg/dL (1.8-2.4); POTASSIUM SERUM 4.2 mmol/L (3.5-5.1); SODIUM SERUM 147 mmol/L (136-145)
[2019-05-20 06:59] LABS: ALBUMIN 1.8 g/dL (3.4-5.0); TOTAL PROTEIN, SERUM 5.5 g/dL (6.4-8.2)
--- NOTE | 2019-05-20 07:02 | NUR ---
RECEIVED PT FROM POLICE SUPERINTENDENT NURSE. PT IN BED SLEEPING, AROUSABLE, RESP E/U ON NC AT 2 LPM. NO ACUTE DISTRESS NOTED. ON TELE 17 SHOWING A-FIB, HR: 99. IV TO RAC W/ NO SIGNS OF INFILTRATION, IVF INFUSING WELL. PEG TUBE IN PLACE SECURED W/ ABD BINDER, RECEIVING JEVITY 1.2 AT 30 ML/HR INFUSING WELL. BED IN LOWEST POSITION, SITTER AT BEDSIDE. WILL CONTINUE TO MONITOR.
[2019-05-20 07:50] VITALS: BP 98/54
--- NOTE | 2019-05-20 12:00 | NUR ---
PT IN BED SLEEPING, AROUSBALE, RESP E/U ON NC AT 2 LPM. TUBE FEEDING ASSESSED, NO GASTRIC RESIDUAL NOTED AT THIS TIME. FEEDING RATE INCREASED TO 40ML/HR INFUSING WELL. BED IN LOWEST POSITION, SITTER AT BEDSIDE. WILL CONTINUE TO MONITOR.
[2019-05-20 15:49] VITALS: BP 118/62
--- NOTE | 2019-05-20 17:15 | NUR ---
PT IN BED SLEEPING, AROUSABLE, RESP E/U ON NC AT 2 LPM. NO ACUTE DISTRESS NOTED. IV TO L HAND W/ NO SIGNS OF INFILTRATION, IVF INFUSING WELL. RECEIVING JEVITY 1.2 VIA PEG TUBE AT 40 ML/HR, INFUSING WELL. BED IN LOWEST POSITION, SITTER AT BEDSIDE. WILL ENDORSE TO ONCOMING NURSE.
--- NOTE | 2019-05-20 18:36 | NUR ---
PT IN BED SLEEPING, AROUSBALE, RESP E/U ON RA. NO ACUTE DISTRESS NOTED. IV TO R HAND W/ NO SIGNS OF INFILTRATION, IVF INFUSING WELL. BED IN LOWEST POSITION AND CALL LIGHT WITHIN REACH. WILL ENDORSE TO ONCOMING NURSE.
--- NOTE | 2019-05-20 19:11 | NUR ---
RECEIVED PT FROM PREVIOUS SHIFT. RESTING WITH EYES CLOSED. NO INDICATIONS OF PAIN. BREATHING E/U ON 2L OXYGEN NC. AUDIBLE CONGESTION NOTED. JEVITY INFUSING AT 40ML/HR, RATE TO BE INCREASED TONIGHT AT 2300, PT TOLERATING WELL, <10ML RESIDUAL NOTED AND REPLACED. IV SITE CDI, IVF INFUSING WELL. CALL LIGHT WITHIN REACH. SAFETY MEASURES IN PLACE. OIL TRUCK DRIVER AT BEDSIDE TO ASSIST WITH ADLS. WILL CONTINUE TO MONITOR.
--- NOTE | 2019-05-20 19:22 | NUR ---
UPDATED AT BEDSIDE WITH POC, ALL QUESTIONS AND CONCERNS ADDRESSED.
--- NOTE | 2019-05-20 19:39 | NUR ---
RT CALLED TO GIVE BREATHING TX TO PT, AUDIBLE CONGESTION NOTED.
[2019-05-20 19:45] VITALS: BP 155/61
--- NOTE | 2019-05-20 21:31 | NUR ---
MEDICATIONS ADMINISTERED PER EMAR. GASTRIC RESIDUAL CHECKED, <10ML AND REPLACED. PT TOLERATED WELL.
--- NOTE | 2019-05-20 23:05 | NUR ---
JEVITY FEEDING INCREASED TO GOAL RATE OF 50ML/HR, TUBING AND FEEDING CHANGED. WILL MONITOR FOR PT TOLERANCE.
--- NOTE | 2019-05-21 01:00 | NUR ---
PT RESTING IN BED. OCCASIONALLY GRUNTING BUT NO SIGNS OF AGITATION. BREATHING E/U ON 2L OXYGEN NC. NO SIGNS OF PAIN NOTED. NO S/S ACUTE DISTRESS. IVF INFUSING WELL. WILL CONTINUE TO MONITOR.
--- NOTE | 2019-05-21 01:49 | NUR ---
RT AT BEDSIDE TO PERFORM DEEP SUCTIONING.
[2019-05-21 05:53] VITALS: BP 114/75
[2019-05-21 06:10] LABS: BASOPHIL % 0.1 % (0-2); PLATELET COUNT 334 x10^3mcL (130-400)
--- NOTE | 2019-05-21 06:16 | NUR ---
PT HAD RESTFUL NIGHT. NO SIGNS OF PAIN INFUSED. JEVITY INFUSING AT 50ML/HR, GOAL RATE, PT TOLERATING WELL. DUE MEDICATIONS GIVEN. BREATHING E/U. NO S/S ACUTE DISTRESS. SAFETY MEASURES IN PLACE. CALL LIGHT WITHIN REACH. WILL ENDORSE CARE TO ONCOMING SHIFT.
[2019-05-21 06:34] LABS: RED CELL DISTRIBUTION WIDTH 16.4 % (11.5-14.5)
[2019-05-21 06:38] LABS: ALBUMIN 1.7 g/dL (3.4-5.0); ALKALINE PHOSPHATASE 175 U/L (46-116); ALT/SGPT 41 U/L (16-63); AST/SGOT 22 U/L (15-37); BILIRUBIN TOTAL 0.51 mg/dL (0.20-1.00); CALCIUM 9.6 mg/dL (8.5-10.1); CARBON DIOXIDE 35.3 mmol/L (21-32); CHLORIDE SERUM 107 mmol/L (98-107); CREATININE SERUM 2.1 mg/dL (0.7-1.3); GLUCOSE SERUM 182 mg/dL (74-106); MAGNESIUM 2.2 mg/dL (1.8-2.4); POTASSIUM SERUM 4.7 mmol/L (3.5-5.1); SODIUM SERUM 145 mmol/L (136-145); TOTAL PROTEIN, SERUM 5.5 g/dL (6.4-8.2)
--- NOTE | 2019-05-21 07:05 | NUR ---
RECEIVED BEDSIDE REPORT FROM FOOD STOREROOM CLERK NURSE. PATIENT RESTING COMFORTABLY IN BED. NO APPARENT DISTRESS OR DISCOMFORT NOTED. 2L NC IN PLACE. PATIENT TOLERATING WELL. NO INDICATIONS OF CHEST PAIN AT THIS TIME. PEG TUBE IN PLACE WITH JEVITY INFUSING AT 50ML/HR AND 30ML FWF. IV PATENT AND INTACT. ALL QUESTIONS AND CONCERNS ADDRESSED. ALL NEEDS ATTENDED TO. SITTER AT BEDSIDE TO PROMOTE PATIENT SAFETY. WILL CONTINUE TO MONITOR
[2019-05-21 08:38] VITALS: BP 114/75
--- NOTE | 2019-05-21 10:08 | NUR ---
ALL MORNING MEDICATIONS ADMINISTERED. PATIENT TOLERATED WELL. NO ADVERSE EFFECTS NOTED. ALL NEEDS ATTENDED TO. WILL CONTINUE TO MONITOR
--- NOTE | 2019-05-21 10:50 | NUR ---
SPOKE WITH DERIK REGARDING PT POC. DERIK VERBALIZED THAT SHE HAD SPOKEN TO DR ELLIOTT THIS MORNING AND WAS AGREEABLE TO CONTINUE WITH HOSPICE AT THIS TIME. WILL NOTIFY DR ELLIOTT AT THIS TIME
--- NOTE | 2019-05-21 11:00 | NUR ---
SPOKE WITH DR ELLIOTT REGARDING PT POC. NOTIFIED THAT WAS AGREEABLE TO HOSPICE AT THIS TIME PER THEIR CONVERSATION THIS MORNING. PER DR ELLIOTT OKAY TO NOTIFY CASE MANAGEMENT AT THIS TIME TO CONTINUE PLAN OF HOSPICE AT THIS TIME.
--- NOTE | 2019-05-21 11:05 | NUR ---
CASE MANAGEMENT NOTIFIED REGARDING PT POC. AWAITING NEW ORDERS AT THIS TIME
--- NOTE | 2019-05-21 12:00 | NUR ---
PATIENT BLOOD SUGAR 136. NO INSULIN COVERAGE REQUIRED. ALL NEEDS ATTENDED TO. WILL CONTINUE TO MONITOR
[2019-05-21 12:57] VITALS: BP 114/75
--- NOTE | 2019-05-21 14:28 | NUR ---
SPOKE TO SERENA FROM [facility] AT THIS TIME. PER SERENA LOG ROPER FOR PATIENT WILL BE @ 1600. CONFIRMED THERE ARE DISCHARGE ORDERS FOR TODAY. AWAITING HOSPICE NURSE TO ARRIVE.
--- NOTE | 2019-05-21 15:00 | NUR ---
GENARO AND AUNDREA RN AT BEDSIDE AT THIS TIME FROM [facility]. PATIENT ACCEPTED TO BED 227A AT [facility] IN [place]. TRANSPORT WITH [facility] TO BE AT 1600PM TONIGHT. ALEXANDRA AWARE AND CONSENTS TO PATIENT BEING TRANSFERRED. REPORT GIVEN TO AUNDREA RN AT BEDSIDE. ALL QUESTIONS AND CONCERNS ADDRESSED. ALL NEEDS ATTENDED TO. WILL CONTINUE TO MONITOR AND AWAIT TRANSPORT
--- NOTE | 2019-05-21 15:09 | NUR ---
Follow-up Nutrition Assessment: ([id number]) LAINEY SEAY 73M Dx: ALOC, PNA, Dehydration PMHx: Hx CVA 12/2018, Dementia, Chronic Afib, HTN, CAD, DM, Hx [place] x2 Labs: BG 182 H, BUN 23 H, Cr 2.1 H, Alb 1.7 L, Alk Phos 175 H, RBC 4.48 L, HCT 39 L Meds: Cardizem, Coreg, Eliquis, Glucagon, Humulin, Isoptin, Lipitor, Xyloprim Diet: TF via PEG tube - Jevity 1.2 @30mL to goal of 50mL, adv Q12hrs w/ 30mL FWF Q4hrs PO Intake: TF Weights: 152# (05/18) 151# (05/17) 151# (05/16) Skin: Scabs BUE Ajay: 14 I/Os: 1950/0 (05/21) 1150/0 (05/20) 540/0 (05/19) 572/450 (05/18) Edema: None noted GI: BS active x4, no abd pain, PEG tube in place w/ abd binder, Jevity @50mL - tolerating well Last BM: 05/19 RD Note (05/21): Visited pt bedside, verified TF Jevity 1.2 running at 50mL/hr w/ 30mL FWF Q4hrs. Spoke w/ RN, pt tolerating TF well, no residuals. Current TF order inadequate to meet pt's estimated nutrient needs. Recommend to Dr Sparks to change TF to Glucerna 1.2 @65 mL/hr (goal) w/ 160 mL FWF Q6hrs. Spoke w/ [facility] Cnc Technician, states Dr Boland is covering for Dr Sparks. Cnc Technician paged Dr Boland, waiting for call back for receommendation for TF adjustment. Estimated Nutritional Needs Based on current body weight (65 kg) Energy: 7436-9907 kcal/day (25-30 kcal/kg for maintenance) Protein: 78-85 grams/day (1.5-2.0 g/kg for maintenance) Fluid: 4125-9931 mL/day (25-30 mL/kcal for rehydration) Nutrition Diagnosis: 05/19: Inadequate nutrient intake r/t altered mental status AEB reports of pt w/ poor intake, worsened confusion and need for enteral support 05/19: Malnutrition r/t chronic illness AEB pt/s 's report of 27 lb weight loss in 2 month, 16% sever weight loss and 70% less PO intake 05/21: Inadequate enteral nutrition infusion r/t current TF order Jevity 1.2 @ 50mL/hr AEB TF providing 89% of lower end of estimated kcal needs, 85% of lower end of estimated Pro needs, and 71% of lower end of fluid needs. Intervention 1. If/when medically appropriate, recommend Glucerna 1.2 @20mL/hr to goal of 65mL/hr, FWF 160mL Q6hrs a. This will provide 1872 kcal, 94g Pro, 1896 mL free H20 b. Meets 96% upper kcal needs, 110% upper end Pro needs Monitor/Evaluate Goal: Have pt meet at least 75% of estimated needs Monitor: EN intake, Labs, GI function, skin integrity, wt maintenance F/U in 2-3 days as high risk 05/23-05/25
--- NOTE | 2019-05-21 16:16 | NUR ---
PATIENT STABLE TO BE TRANSFERRED TO [facility] WITH [facility]. DISCHARGE INSTRUCTIONS GIVEN WELL EDUCATION TO PATIENT'S ALEXANDRA. INSTRUCTED PATIENTS ABOUT FOLLOW UP APPOINTMENT. PATIENTS VERBALIZES UNDERSTANDING. IV INTACT. ID BANDS REMOVED. TELE MONITOR REMOVED AND RETURNED TO SUPERVISOR SHOW OPERATIONS. PEG TUBE IN PLACE. ALL BELONGINGS WITH PATIENT. ALL QUESTIONS AND CONCERNS ADDRESSED. ALL NEEDS ATTENDED TO TRANSPORT AT BEDSIDE AT THIS TIME. TO BE TRANSFERRED DOWN TO [facility]
== END 2019-05-21 16:30 | DRG 871 ==
LOC: ED 11:56 → DU 23:50
PROVIDERS: Emergency Medicine; Internal Medicine Gastroenterology; Internal Medicine Pulmonary Disease; ADMIT Internal Medicine Pulmonary Disease
PROC: 0DH63UZ Insertion of Feeding Device into Stomach, Percutaneous Approach (ICD-10-PCS; principal; 2019-05-19 10:00)
DX: A41.9 Sepsis, unspecified organism (principal); J69.0 Pneumonitis due to inhalation of food and vomit; G93.41 Metabolic encephalopathy; F01.51 Vascular dementia, unspecified severity, with behavioral disturbance; E87.0 Hyperosmolality and hypernatremia; E86.0 Dehydration; E87.5 Hyperkalemia; K29.60 Other gastritis without bleeding; I48.2 Chronic atrial fibrillation; I10 Essential (primary) hypertension; I25.2 Old myocardial infarction; Z68.33 Body mass index [BMI] 33.0-33.9, adult; I25.10 Atherosclerotic heart disease of native coronary artery without angina pectoris; Z86.73 Personal history of transient ischemic attack (TIA), and cerebral infarction without residual deficits
CPT/HCPCS: 43235; 82962; 92526-GN; 92610; G0378; G0480; J0456; J0690; J0696; J1200; J1610; J1940; J2060; J2250; J2310; J3010; J3490; J7030; J7070; J7613; J7644; Q0092